=== PATIENT | male | born 1960 | race Caucasian/White ===

== ENCOUNTER → 2020-10-07 | Outpatient (CLI) | payer OTHER ==
[~2020-10-07] MED LIST: ARGI500T4 PO; ASCO-262 PO; CHOL10003 PO; CINN500C2 PO; CYCL10TA9 PO; DICL75TA2 PO; HYOS0.1281 PO; LEVO500T2 PO; METH-732 PO; MULT1CAP27 PO; NIAC10002 PO; PHEN-640 PO; TERA5CAP10 PO; [UNRECOGNIZED DRUG - OTHER] PO
--- NOTE | 2020-10-07 17:06 | Diagnostic Imaging Report ---
INDICATION: Lumbar pain COMPARISON: None available TECHNIQUE: 3 radiographs of the lumbar spine dated 10/07/2020 FINDINGS: 5 lumbar type vertebral bodies are present. Alignment of the lumbar spine is well maintained. Bilateral posterior pedicle screws are identified with associated interconnecting rods at L2 and L3 with associated interbody disc device. No evidence of hardware complication. Bilateral posterior pedicle screws are also noted at L4, though no interconnecting mildred is seen extending to the L4 level. No evidence of hardware complication. Interbody disc device is present at L3/L4. Chronic appearing minimal anterior wedging of L1. Scattered Schmorl's nodes and endplate degenerative changes. No evidence of a recent vertebral body compression deformity. No acute fracture or dislocation. Scattered facet joint degenerative changes. Background vascular calcifications. Prominent anterior osteophytes within the partially visualized lower thoracic spine. Moderate disc space height loss at L2/L3 and L3/L4 with mild disc space height loss at L1/L2. IMPRESSION: Postsurgical and degenerative changes in the lumbar spine without acute osseous abnormality or hardware complication. Significant background vascular calcifications. Dictated by: Dictated on workstation # [id number]
== END ==
LOC: RAD FS 16:08
PROVIDERS: ATTEND Nurse Practitioner Family
DX: M47.816 Spondylosis without myelopathy or radiculopathy, lumbar region (principal)
CPT/HCPCS: 72100